=== PATIENT | male | born 1980 | race African-American/Black ===

== ENCOUNTER 2016-12-14 20:28 | Emergency (ER) | payer SELFPAY ==
[~2016-12-14] VITALS: Ht 185.4 cm; Wt 86.0 kg
[~2016-12-14 20:28] MED LIST: AMLO5 PO; LANTUS2P SQ; PROT40TA PO; REGL5TAB PO
[2016-12-14 20:31] VITALS: BP 130/58; PULSE 81; RESP 16; TEMP 97.7; O2SAT 98
== END 2016-12-14 23:50 | disposition left against medical advice (07) ==
LOC: NED 23:50
DX: R68.89 Other general symptoms and signs (principal)
CPT/HCPCS: 99281

== ENCOUNTER 2017-04-10 22:45 | Emergency (ER) | payer SELFPAY ==
[~2017-04-10] VITALS: Ht 188 cm; Wt 88.0 kg
[2017-04-10 22:47] VITALS: BP 135/75; PULSE 86; RESP 16; TEMP 98.8; O2SAT 99
[2017-04-10] MEDS ORDERED: NOVO7030P2 SQ (23:04)
--- NOTE | 2017-04-10 23:22 | PD ---
HPI Chief Complaint: Injury Time Seen by Provider: 23:18 Travel History International Travel<30 days: No Contact w/Intl Traveler<30days: No Traveled to known affect area: No History of Present Illness HPI 37-year-old white male insulin-dependent diabetic presents to emergency Department with complaints of pain to the lateral right foot since Sunday. He states that he wears work boots and stands on hard concrete floors prolong present time. He does not recall atraumatic injury. He states that he has had similar pain in the past. He does not check his blood sugars area he does not report any recent illness. He has not been sick otherwise. No fever chills. No numbness, tingling or weakness. Pain is mild to moderate. Worse with weightbearing. Some relief with elevation. PFSH Past Medical History Narrative Medical Gastritis, IDDM Anxiety: No Depression: No Heart Rhythm Problems: No Cancer: No Cardiovascular Problems: No High Cholesterol: No Chemotherapy: No Chest Pain: No Congestive Heart Failure: No Cerebrovascular Accident: No Diabetes: Yes Endocrine: Yes (insulin-lantus) Gastrointestinal Disorders: Yes (gastritis) Genitourinary: No Hypertension: No Immune Disorder: No Musculoskeletal: No Neurologic: No Psychiatric: No Respiratory: No Immunizations Current: Yes Tetanus Vaccination: < 5 Years Past Surgical History Surgical History: No Previous Surgery Other Surgery: No Social History Alcohol Use: No Tobacco Use: Yes Substance Use: Yes Allergies-Medications (Allergen,Severity, Reaction): Coded Allergies: No Known Allergies (Unverified , 04/10/17) Reported Meds & Prescriptions Reported Meds & Active Scripts Active Reported Novolin 70-30 Inj (Insulin Human Isoph/Insulin Regular) 1,000 Unit/10 Ml Vial 1 Units SQ Review of Systems Except as stated in HPI: all other systems reviewed are Neg Physical Exam Narrative GENERAL: This is a well-nourished, well-developed patient, in no apparent distress. SKIN: No rashes, ecchymoses or lesions. Warm and dry. HEAD: Atraumatic. Normocephalic. EYES: PERRL, EOMI, no discharge or injection. No scleral icterus. EARS: Clear NOSE: Nasal turbinates appear normal. THROAT: Mucosa pink and moist. Airway patent. NECK: Trachea midline. supple, moves head freely. LUNGS: Clear to auscultation. CV: Regular in rhythm. ABDOMEN: Soft nontender. EXT: No clubbing cyanosis or edema. Examination of the right foot reveals tenderness over the proximal fifth metatarsal. There is minimal swelling. No erythema or warmth. Patient has intact gross sensation and has good distal dorsalis pedis pulse. Good Refill. No pain in the toes, proximal forefoot, heel, Achilles. Data Data Last Documented VS Vital Signs Date Time Temp Pulse Resp B/P Pulse Ox O2 Delivery O2 Flow Rate FiO2 04/10/17 22:47 98.8 86 16 135/75 99 Orders Foot, Complete ([id number]) (04/10/17 22:54) Blood Glucose (04/10/17 22:54) MDM Medical Decision Making Medical Screen Exam Complete: Yes Emergency Medical Condition: Yes Medical Record Reviewed: Yes Interpretation(s) Last 24 hours Impressions Foot X-Ray 04/10/17 5780 Signed Impressions: Service Date/Time: Monday, April 10, 2017 23:20 - CONCLUSION: No acute fracture. Bret Mae MD Differential Diagnosis Differential diagnoses: Neuropathy, sprain, strain, fracture, tendinitis, infection Narrative Course Patient's Accu-Chek here is 96 in the ER. X-ray of the foot is negative for bony injury. This is right foot tendinitis Diagnosis Primary Impression: Tendinitis of right foot Patient Instructions: General Instructions Departure Forms: Tests/Procedures, Work Release Special Instructions: No work 3-5 days Additional Instructions: Rest. Elevation. Steve wrap. Diclofenac. Check your blood sugars daily. Follow-up with a digital associate in 3-5 days Med/Other Pt SpecificInfo: Prescription(s) given Disposition: 01 DISCHARGE HOME Condition: Stable Pastor Hernandez Apr 10, 2017 23:21
--- NOTE | 2017-04-10 23:45 | RADRPT ---
EXAM DATE/TIME: 04/10/2017 23:20 [facility] COMPARISON: FOOT RIGHT COMPLETE ([id number]), September 07, 2015, 10:44. INDICATIONS : Right foot pain. No known injury. MEDICAL HISTORY : Diabetes SURGICAL HISTORY : None. ENCOUNTER: Initial ACUITY: 4 - 6 days PAIN SCORE: 5/10 LOCATION: Right foot FINDINGS: Three view examination of the right foot demonstrates no soft tissue swelling, dislocation, or fractu re. The tarsal bones appear intact. The interphalangeal and metatarsophalangeal joints are intact. The calcaneus is intact. Bony mineralization is normal. Vascular calcifications. CONCLUSION: No acute fracture. Bret Mae MD on April 10, 2017 at 23:43 Board Certified Radiologist. This report was verified electronically.
[2017-04-10] MEDS ORDERED: DICL75TA PO (23:56)
[2017-04-11] MEDS ORDERED: IBUPROFEN 600 MG TAB PO ONE
[2017-04-11] MEDS ORDERED: ACETAMINOPHEN/HYDROcodone 325 MG/5 MG TAB PO ONE
== END 2017-04-11 00:13 | disposition home or self-care (01) ==
LOC: NEPD 22:45
DX: M77.9 Enthesopathy, unspecified (principal); E11.9 Type 2 diabetes mellitus without complications; Z79.4 Long term (current) use of insulin; Z72.0 Tobacco use
CPT/HCPCS: 73630; 99283

== ENCOUNTER 2017-09-26 12:46 | Emergency (ER) | payer SELFPAY ==
[~2017-09-26 12:46] MED LIST changes: -AMLO5 PO; +DICL75TA PO; -LANTUS2P SQ; +NOVO7030P2 SQ; -PROT40TA PO; -REGL5TAB PO
[2017-09-26 12:48] VITALS: BP 152/68; PULSE 89; RESP 14; TEMP 99.1; O2SAT 98
--- NOTE | 2017-09-26 13:19 | PD ---
HPI Chief Complaint: Complaint Time Seen by Provider: 13:05 Travel History International Travel<30 days: No Contact w/Intl Traveler<30days: No Traveled to known affect area: No History of Present Illness HPI 37-year-old male presents to emergency department complaining of dysuria, hematuria 1, and a painful mass on his testicle for about 1 week. Patient states that he had an unprotected sexual encounter with a sex worker and developed the symptoms about 2 weeks after the event. States he has burning when he urinates. Patient describes his hematuria as redness in the toilet- no clots. Patient denies fever, chills, chest pain, shortness of breath, abdominal pain. States that he has a mass on his left testicle normally but is usually not painful. He has not followed up with the health department. Patient does not follow his primary care physician. PFSH Past Medical History Anxiety: No Depression: No Heart Rhythm Problems: No Cancer: No Cardiovascular Problems: No High Cholesterol: No Chemotherapy: No Chest Pain: No Congestive Heart Failure: No Cerebrovascular Accident: No Diabetes: Yes Endocrine: Yes (insulin-lantus) Gastrointestinal Disorders: Yes (gastritis) Genitourinary: No Hypertension: No Immune Disorder: No Musculoskeletal: No Neurologic: No Psychiatric: No Respiratory: No Immunizations Current: Yes Past Surgical History Other Surgery: No Social History Alcohol Use: No Tobacco Use: Yes Substance Use: Yes Allergies-Medications (Allergen,Severity, Reaction): Coded Allergies: No Known Allergies (Unverified , 04/10/17) Reported Meds & Prescriptions Reported Meds & Active Scripts Active Diclofenac Sodium DR (Diclofenac Sodium) 75 Mg Tabdr 75 Mg PO BID Reported Novolin 70-30 Inj (Insulin Human Isoph/Insulin Regular) 1,000 Unit/10 Ml Vial 1 Units SQ Review of Systems Except as stated in HPI: all other systems reviewed are Neg Physical Exam Narrative GENERAL: Well-developed well-nourished in no acute distress SKIN: Focused skin assessment warm/dry. HEAD: Atraumatic. Normocephalic. EYES: Pupils equal and round. No scleral icterus. No injection or drainage. ENT: No nasal bleeding or discharge. Mucous membranes pink and moist. NECK: Trachea midline. No JVD. CARDIOVASCULAR: Regular rate and rhythm. No murmur appreciated. RESPIRATORY: No accessory muscle use. Clear to auscultation. Breath sounds equal bilaterally. GASTROINTESTINAL: Abdomen soft, non-tender, nondistended. Hepatic and splenic margins not palpable. GENITOURINARY: Circumcised. Testes descended bilaterally without evidence of rotation. No erythema. No urethral discharge. Left testicle with tender mass over epididymal area. No blue dot sign. Genitourinary exam performed with distribution operation supervisor. MUSCULOSKELETAL: No obvious deformities. No clubbing. No cyanosis. No edema. No CVA tenderness NEUROLOGICAL: Awake and alert. No obvious cranial nerve deficits. Motor grossly within normal limits. Normal speech. PSYCHIATRIC: Appropriate mood and affect; insight and judgment normal. Data Data Last Documented VS Vital Signs Date Time Temp Pulse Resp B/P (MAP) Pulse Ox O2 Delivery O2 Flow Rate FiO2 09/26/17 15:41 09/26/17 12:48 99.1 89 14 98 Orders Orders Urinalysis - C+S If Indicated (09/26/17 12:58) Gc And Chlamydia Pcr (09/26/17 12:58) Us Testicles W Doppler (09/26/17 ) Azithromycin Powd Pack (Zithromax Powd P (09/26/17 13:30) Ceftriaxone Inj (Rocephin Inj) (09/26/17 13:30) Lidocaine Pf 1% Inj (Xylocaine-Mpf 1% In (09/26/17 13:35) Lidocaine 1% Inj (50 Ml) (Xylocaine 1% I (09/26/17 13:45) Ed Discharge Order (09/26/17 15:41) Labs Laboratory Tests Test 09/26/17 13:15 Urine Color YELLOW Urine Turbidity CLEAR Urine pH 5.5 Urine Specific [place] 1.020 Urine Protein 30 mg/dL Urine Glucose (UA) NEG mg/dL Urine Ketones NEG mg/dL Urine Occult Blood SMALL Urine Nitrite NEG Urine Bilirubin NEG Urine Urobilinogen 2.0 MG/DL Urine Leukocyte Esterase NEG Urine RBC 4 /hpf Urine WBC 1 /hpf Urine Hyaline Casts 4 /lpf Urine Mucus FEW /lpf Microscopic Urinalysis Comment CULT NOT INDICATED Chlamydia trachomatis DNA (PCR) NOT DETECTED Neisseria gonorrhoeae DNA (PCR) NOT DETECTED MDM Medical Decision Making Medical Screen Exam Complete: Yes Emergency Medical Condition: Yes Differential Diagnosis UTI, GC/Chlamydia infection, epididymitis Narrative Course 37-year-old male presents to emergency department complaining of dysuria, hematuria 1, and a painful mass on his testicle for about 1 week. Patient states that he had an unprotected sexual encounter with a sex worker and developed the symptoms about 2 weeks after the event. States he has burning when he urinates. Patient describes his hematuria as redness in the toilet- no clots. Patient denies fever, chills, chest pain, shortness of breath, abdominal pain. States that he has a mass on his left testicle normally but is usually not painful. Patient denies joint pains or conjunctival symptoms. He has not followed up with the health department. Patient does not follow his primary care physician. Vital signs stable. Urinalysis- little blood without significant WBCs Patient prophylactically treated for GC chlamydia. Rocephin 250 mg IM, azithromycin 1 g. Last Impressions Scrotum Ultrasound 09/26/17 0000 Signed Impressions: Service Date/Time: Sunday, September 26, 2017 14:03 - CONCLUSION: 1. Bilateral varicoceles, larger on the left. This corresponds to region of palpable abnormality on the left. 2. Small left epididymal cyst. 3. Normal vascularity without evidence for testicular mass. Adan Butler MD Educated patient on the importance of protection. Advised on the importance of treating all partners. Advised patient to follow up at the health department for further treatment and evaluation. Follow-up with primary care physician within 2-3 days. Return to the emergency department for worsening or persistent symptoms. Diagnosis Primary Impression: Testicular pain Additional Impression: Urethritis Referrals: [facility]. Patient Instructions: General Instructions, Nonspecific Urethritis in Men (DC) Additional Instructions: Follow up with your primary care physician within 2-3 days. If your symptoms persist or worsen, return to the emergency department. It is imperative you follow up with the health department for further testing and evaluation. Disposition: 01 DISCHARGE HOME Condition: Stable Cherri Baxter Sep 26, 2017 13:19
[2017-09-26] MEDS ORDERED: cefTRIAXone 250 MG VIAL IM ONE (13:30)
[2017-09-26] MEDS ORDERED: AZITHROMYCIN PWD FOR SUSP 1 GM PACKET PO ONE (13:30)
[2017-09-26] MEDS ORDERED: LIDOCAINE HCL 1% PF 30 ML VIAL ONE (13:35)
[2017-09-26] MEDS ORDERED: LIDOCAINE HCL 1% 50 ML VIAL INFIL ONE (13:45)
[2017-09-26 13:46] LABS: BILIRUBIN, URINE NEG (NEG); BLOOD, URINE SMALL (NEG); GLUCOSE,URINE NEG (NEG); HYALINE CAST, URINE 4 /lpf (RARE); KETONE, URINE NEG (NEG); MUCUS URINE FEW /lpf (OCC); NITRITE,URINE NEG (NEG); PH, URINE 5.5 (5.0-8.5); URINE COLOR YELLOW (YELLW/STRAW); URINE LEUKOCYTE ESTERASE NEG (NEG)
--- NOTE | 2017-09-26 15:33 | RADRPT ---
EXAM DATE/TIME: 09/26/2017 14:03 [facility] COMPARISON: US TESTICLE W/DOPPLER, July 06, 2015, 8:57. INDICATIONS : Left testicle pain and mass. MEDICAL HISTORY : Gastritis. Diabetes. SURGICAL HISTORY : Left varicocele removed. ENCOUNTER: Subsequent ACUITY: 2 weeks PAIN SCORE: 6/10 LOCATION: Bilateral scrotum. MEASUREMENTS: RIGHT TESTICLE: 5.5 x 3.9 x 2.6cm LEFT TESTICLE: 4.0 x 3.5 x 2.3cm FINDINGS: RIGHT TESTICLE: Homogeneous echotexture without intra or extratesticular mass. Blood flow is symmetric and within no rmal limits. No hydrocele. Small varicocele. Epididymis is within normal limits. LEFT TESTICLE: Homogeneous echotexture without intra or extratesticular mass. Blood flow is symmetric and within no rmal limits. No hydrocele. Small varicocele. Small left epididymal cyst. SCROTUM: Within normal limits. CONCLUSION: 1. Bilateral varicoceles, larger on the left. This corresponds to region of palpable abnormality on t he left. 2. Small left epididymal cyst. 3. Normal vascularity without evidence for testicular mass. Adan Butler MD on September 26, 2017 at 15:28 Board Certified Radiologist. This report was verified electronically.
== END 2017-09-26 15:46 | disposition home or self-care (01) ==
LOC: NEPK 12:46
DX: I86.1 Scrotal varices (principal); L72.0 Epidermal cyst; N34.2 Other urethritis; E11.9 Type 2 diabetes mellitus without complications; Z72.0 Tobacco use; Z79.4 Long term (current) use of insulin; Z79.899 Other long term (current) drug therapy
CPT/HCPCS: 76870; 81001; 87491; 87591; 93975; 96372; 99285; J0696